=== PATIENT | female | born 1950 | race Caucasian/White ===

== ENCOUNTER 2018-12-11 16:56 | Emergency (ER) | payer BC ==
[~2018-12-11] VITALS: Ht 162.6 cm; Wt 65.0 kg
[~2018-12-11 16:56] MED LIST: NEBI5TAB9 PO
[2018-12-11 17:00] VITALS: Ht 162.6 cm; Wt 65.0 kg
[2018-12-11] MEDS ORDERED: FLUORESCEIN STRIP LEFT EYE ONE (18:00)
[2018-12-11] MEDS ORDERED: IBUPROFEN 200 MG TAB PO ONE (18:00)
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
[2018-12-11] MEDS ORDERED: ACET500C5 PO (22:21)
[2018-12-11] MEDS ORDERED: ALP2OP10 LEFT EYE (22:21)
[2018-12-11 22:40] VITALS: BP 186/81; PULSE 58; RESP 16
== END 2018-12-11 22:45 | disposition home or self-care (01) ==
LOC: FTE 16:56
DX: I10 Essential (primary) hypertension (principal); R51 Headache; W50.0XXA Accidental hit or strike by another person, initial encounter; Y92.9 Unspecified place or not applicable
CPT/HCPCS: 70450; 70480; 76536

== ENCOUNTER 2019-03-12 16:37 | Emergency (ER) | payer BC, OTHER ==
[~2019-03-12] VITALS: Ht 160 cm; Wt 56.8 kg
[~2019-03-12 16:37] MED LIST changes: +ACET500C5 PO; +ALP2OP10 LEFT EYE
[2019-03-12 16:52] VITALS: Ht 160 cm; Wt 56.8 kg
[2019-03-12] MEDS ORDERED: OLME20TA20 PO (18:05)
--- NOTE | 2019-03-12 18:55 | ERD ---
ER Documentation Chief Complaint Chief Complaint High blood pressure felt high took BP meds again HPI This is a 69-year-old female who is here because she woke up this morning her blood pressure was elevated. She says she can tell when it is high because she feels dizzy. She checked it at home and had numbers of 170s over high 90s. She went to the hospital here to work and EVS and she stated that she felt better. She said later on, few hours later, she could tell is raising again so it was checked again with the same readings. She felt dizzy but did not have any chest pain shortness of breath no headache no visual change no focal neurological complaints. She took another dose of her blood pressure pressure meds and she said she now feels fine again. She said during the high blood pressure episode she did feel a few palpitations but no pain. ROS All systems reviewed and are negative except as per history of present illness. Medications Home Meds Reported Medications Olmesartan Medoxomil (Benicar) 20 Mg Tablet, 20 MG PO DAILY, #30 TAB 03/12/19 Nebivolol* (Bystolic*) 5 Mg Tab, 5 MG PO DAILY, TAB 12/10/14 Discontinued Scripts Acetaminophen* (Tylophen*) 500 Mg Capsule, 2 CAP PO Q8H PRN for PAIN AND OR ELEVATED TEMP, #20 CAP Prov:LUBNA FRAUSTO NP 12/11/18 Brimonidine Tartrate* (Alphagan*) 0.2%-10 Ml Opht Drops, 1 DROP LEFT EYE Q8 for 7 Days, #1 BOTTLE Prov:LUBNA FRAUSTO NP 12/11/18 Allergies Allergies: Coded Allergies: No Known Drug Allergies (Verified Allergy, Mild, 12/10/14) PMhx/Soc History of Surgery: Yes (L KNEE) Anesthesia Reaction: No Hx Neurological Disorder: No Hx Respiratory Disorders: No Hx Cardiac Disorders: Yes (htn) Hx Psychiatric Problems: No Hx Miscellaneous Medical Probl: Yes (CATARACT) Hx Alcohol Use: No Hx Substance Use: No Hx Tobacco Use: No Smoking Status: Never smoker FmHx Family History: No coronary disease Physical Exam Vitals Vital Signs Date Temp Pulse Resp B/P (MAP) Pulse Ox O2 O2 Flow FiO2 Time Delivery Rate 03/12/19 97.8 67 18 126/61 100 Room Air 17:17 (82) 03/12/19 97.8 85 18 162/74 100 Room Air 16:59 (103) 03/12/19 97.8 66 18 162/74 100 16:52 (103) Physical Exam Const: Well-developed, well-nourished Head: Atraumatic, normocephalic Eyes: Normal Conjunctiva, PERRLA, EOMI, normal sclera, no nystagmus ENT: Normal External Ears, Nose and Mouth, moist mucus membranes. Neck: Full range of motion. No meningismus, no lymphadenopathy. Resp: Clear to auscultation bilaterally, no wheezing, rhonchi, rales Cardio: Regular rate and rhythm, no murmurs, S1 S2 present Abd: Soft, non tender x 4, non distended. Normal bowel sounds, no guarding or rebound, no pulsitile abdominal masses or bruits Skin: No petechiae or rashes, no ecchymosis , no maculopapular rash Back: No midline or flank tenderness Ext: No cyanosis, or edema, FROM x 4, normal inspection, neurovascularly intact x 4 Neur: Awake and alert, STR 5/5 x 4, sensation intact x 4, no focal findings, cerebellum intact Psych: Normal Mood and Affect Result Diagram: 03/12/19 1705 03/12/19 1705 Results 24 hrs Laboratory Tests Test 03/12/19 17:05 White Blood Count 8.7 10^3/ul Red Blood Count 4.10 10^6/ul Hemoglobin 11.8 g/dl Hematocrit 35.7 % Mean Corpuscular Volume 87.1 fl Mean Corpuscular Hemoglobin 28.8 pg Mean Corpuscular Hemoglobin Concent 33.1 g/dl Red Cell Distribution Width 13.2 % Platelet Count 259 10^3/UL Mean Platelet Volume 11.2 fl Immature Granulocytes % 0.500 % Neutrophils % 59.2 % Lymphocytes % 31.3 % Monocytes % 7.2 % Eosinophils % 1.0 % Basophils % 0.8 % Nucleated Red Blood Cells % 0.0 /100WBC Immature Granulocytes # 0.040 10^3/ul Neutrophils # 5.1 10^3/ul Lymphocytes # 2.7 10^3/ul Monocytes # 0.6 10^3/ul Eosinophils # 0.1 10^3/ul Basophils # 0.1 10^3/ul Nucleated Red Blood Cells # 0.0 10^3/ul Sodium Level 137 mmol/L Potassium Level 3.9 mmol/L Chloride Level 100 mmol/L Carbon Dioxide Level 26 mmol/L Anion Gap 11 Blood Urea Nitrogen 21 mg/dl Creatinine 1.02 mg/dl Est Glomerular Filtrat Rate mL/min 54 mL/min Glucose Level 134 mg/dl Calcium Level 9.7 mg/dl Troponin I < 0.012 ng/ml Procedures/MDM EKG: Rate/Rhythm: Normal Sinus Rhythm,NL intervals QRS, ST, QT: NORMAL FL, QRS, QT] Impression: NORMAL EKG Patient's labs are unremarkable, troponin is negative. Blood pressure is 144/66 at time of my examination. I will change her blood pressure meds and. She says that she is chronically having inconsistencies with her blood pressure readings with elevations been back to normal multiple times a day. She says she knows the symptoms well Departure Diagnosis: Primary Impression: Uncontrolled hypertension Additional Impression: Palpitations Condition: Stable LUCIA GALVAN DO Mar 12, 2019 18:55
[2019-03-12] MEDS ORDERED: AMLO-218 PO (19:19)
[2019-03-12 19:39] VITALS: BP 137/75; PULSE 78; RESP 16
== END 2019-03-12 19:40 | disposition home or self-care (01) ==
LOC: E/R 16:37
DX: I10 Essential (primary) hypertension (principal)
CPT/HCPCS: 36415; 71045; 80048; 84484; 85025; 93005